=== PATIENT | male | born 1980 | race Caucasian/White ===

== ENCOUNTER 2018-10-06 07:17 | Inpatient (IN) | payer OTHER, MEDICAID ==
[~2018-10-06 07:17] MED LIST: DESFLURANE 15 MIN; GLYCOPYRROLATE 0.4 MG INJ; METOCLOPRAMIDE 10 MG INJ; NEOSTIGMINE 3 MG/3 ML SYRINGE; PROPOFOL 200 MG INJ
[2018-10-06] MEDS ORDERED: SOD CHLORIDE 0.9% 1,000 ML IV (09:00)
[2018-10-06] MEDS: CEFAZOLIN 2 GM/50 ML (PMX) 50 ML IVPB (09:00)
[2018-10-06] MEDS ORDERED: FENTAnyl 50 MCG/ML VIAL ×2 (09:09→10:50)
[2018-10-06] MEDS ORDERED: MIDAZOLAM 1 MG/ML 2 ML INJ ×2 (09:11→10:50)
[2018-10-06] MEDS ORDERED: ONDANSETRON 4 MG INJ (09:13)
[2018-10-06] MEDS ORDERED: ROCURONIUM 50 MG INJ (09:15)
[2018-10-06] MEDS ORDERED: PROPOFOL 20 ML (09:15)
[2018-10-06] MEDS ORDERED: LIDOCAINE 2% (SDV) 5 ML INJ (09:15)
[2018-10-06] MEDS ORDERED: SUCCINYLCHOLINE CHLORIDE 100 MG/5 ML SYG IV (09:15)
[2018-10-06] MEDS ORDERED: ROPIVACAINE 0.5 % 30 ML VIAL (09:16)
[2018-10-06] MEDS ORDERED: morphine SULFATE/PF (10 MG/10 ML) INJ (09:16)
[2018-10-06] MEDS ORDERED: POLYMYXIN/BACITRACIN 1L IRRIG (09:41)
[2018-10-06] MEDS ORDERED: ALBUMIN HUMAN 5% 250 ML IV (10:30)
[2018-10-06] MEDS ORDERED: LABETALOL HCL 20MG INJ IV (10:30)
[2018-10-06] MEDS ORDERED: FENTAnyl 50 MCG/ML VIAL IV ×2 (10:30)
[2018-10-06] MEDS ORDERED: HYDROmorphONE 1 MG/5 ML IV SYRINGE IV ×2 (10:30)
[2018-10-06] MEDS ORDERED: DIPHENHYDRAMINE 50 MG INJ IV ×2 (10:30→13:00)
[2018-10-06] MEDS ORDERED: ONDANSETRON 4 MG INJ IV ×3 (10:30→17:30)
[2018-10-06] MEDS ORDERED: MEPERIDINE 25 MG INJ IV (10:30)
[2018-10-06] MEDS ORDERED: LEVALBUTEROL (NEB) 1.25 MG/0.5 ML AMP HHN (10:30)
[2018-10-06] MEDS ORDERED: EPHEDrine SULFATE 50 MG/5 ML SYG IV (10:30)
[2018-10-06] MEDS ORDERED: hydrALAzine 20 MG INJ IV (10:30)
[2018-10-06] MEDS ORDERED: IPRATROPIUM (NEB) 0.5 MG/2.5 ML AMP HHN (10:30)
[2018-10-06] MEDS ORDERED: SUGAMMADEX SODIUM 200 MG/2 ML VIAL IV (12:16)
[2018-10-06] MEDS ORDERED: PROVENTIL HFA 6.7GM INHALER (12:21)
[2018-10-06 12:53] LABS: WHITE BLOOD COUNT 30.9 10^3/ul (4.8-10.8)
[2018-10-06 12:53] LABS: ABNORMAL IP MESSAGE 1; HEMATOCRIT 46.8 % (42.0-52.0); HEMOGLOBIN 15.5 g/dl (14.0-18.0); MEAN CORPUSCULAR HEMOGLOBIN 30.9 pg (29.0-33.0); MEAN CORPUSCULAR HGB CONC 33.1 g/dl (32.0-37.0); MEAN CORPUSCULAR VOLUME 93.4 fl (82.0-101.0); MEAN PLATELET VOLUME 10.3 fl (7.4-10.4); PLATELET COUNT 310 10^3/UL (140-415); POSITIVE DIFF @See below; RED BLOOD COUNT 5.01 10^6/ul (4.70-6.10); RED CELL DISTRIBUTION WIDTH 12.8 % (11.5-14.5)
[2018-10-06] MEDS: HYDROmorphONE 1 MG/5 ML IV SYRINGE IV (12:58)
[2018-10-06] MEDS ORDERED: ZOLPIDEM 5 MG TAB PO (13:00)
[2018-10-06] MEDS ORDERED: NALOXONE (0.4 MG/ML) INJ IV (13:00)
[2018-10-06] MEDS ORDERED: HYDROCODONE/APAP (5/325) TAB PO (13:00)
[2018-10-06] MEDS ORDERED: HYDROmorphONE 0.5 MG/0.5 ML SYG IV (13:00)
[2018-10-06 13:01] LABS: ADD MAN DIFF? YES; HOLD TRANSMISSIONS 1
[2018-10-06] MEDS: FENTAnyl 2MCG/ML-ROPIV 0.2% 100 ML BAG EPI (13:11)
[2018-10-06 13:13] LABS: ALANINE AMINOTRANSFERASE 54 IU/L (13-69); ALBUMIN 4.1 g/dl (3.3-4.9); ALBUMIN/GLOBULIN RATIO 1.36; ALKALINE PHOSPHATASE 76 IU/L (42-121); ANION GAP 10 (5-13); ASPARTATE AMINO TRANSFERASE 32 IU/L (15-46); BILIRUBIN,INDIRECT 0.3 mg/dl (0-1.1); BILIRUBIN,TOTAL 0.3 mg/dl (0.2-1.3); BLOOD UREA NITROGEN 12 mg/dl (7-20); CALCIUM 8.5 mg/dl (8.4-10.2); CARBON DIOXIDE 26 mmol/L (21-31); CHLORIDE 104 mmol/L (97-110); CREATININE 1.21 mg/dl (0.61-1.24); Estimated GFR > 60 mL/min (>60); GLUCOSE 165 mg/dl (70-220); SODIUM 140 mmol/L (135-144); TOTAL PROTEIN 7.1 g/dl (6.1-8.1)
[2018-10-06 13:23] LABS: ANISOCYTOSIS 1+ (0-0); BAND NEUTROPHILS #M 6.1 10^3/ul (0.0-0.6); BAND NEUTROPHILS % (M) 20 % (0-4); GIANT THROMBO% (M) 1 % (0-0); LYMPHOCYTES #M 1.5 10^3/ul (0.8-2.9); LYMPHOCYTES % (M) 5 % (15-51); MONOCYTE #M 1.8 10^3/ul (0.3-0.9); MONOCYTES % (M) 6 % (0-11); PLATELET ESTIMATE NORMAL; POIKILOCYTOSIS 1+ (0-0); REACTIVE LYMPHOCYTES #M 2.1 10^3/ul (0.0-0.0); REACTIVE LYMPHOCYTES% (M) 7 % (0-0); SEGMENTED NEUTROPHILS (M) % 62 % (39-77); SMUDGE%M 4 % (0-0)
[2018-10-06 13:24] LABS: PATH REVIEW Y
[2018-10-06] MEDS ORDERED: CEFAZOLIN 2 GM/50 ML (PMX) 50 ML IVPB (17:00)
[2018-10-06] MEDS: ACETAMINOPHEN 1000MG/100ML IV 100 ML IVPB (17:22)
[2018-10-06] MEDS ORDERED: VANCOMYCIN IV PER PHARMACY XX (17:30)
[2018-10-06] MEDS ORDERED: ALBUTEROL 0.083% (NEB) 2.5 MG/3 ML AMP NEB (17:30)
[2018-10-06] MEDS ORDERED: LORAZEPAM 2 MG INJ IV (17:30)
[2018-10-06] MEDS ORDERED: NACL 0.9% 3 ML SYG IV (17:30)
[2018-10-06] MEDS ORDERED: IPRATROPIUM (NEB) 0.5 MG/2.5 ML AMP NEB (17:30)
[2018-10-06 17:47] LABS: ADD MAN DIFF? NO
[2018-10-06 17:52] LABS: ABNORMAL IP MESSAGE 1; BASOPHIL # 0.1 10^3/ul (0.0-0.1); BASOPHILS % 0.3 % (0.0-2.0); HEMATOCRIT 42.3 % (42.0-52.0); HEMOGLOBIN 14.3 g/dl (14.0-18.0); LYMPHOCYTES # 1.4 10^3/ul (0.8-2.9); LYMPHOCYTES % 5.8 % (15.0-51.0); MEAN CORPUSCULAR HEMOGLOBIN 30.6 pg (29.0-33.0); MEAN CORPUSCULAR HGB CONC 33.8 g/dl (32.0-37.0); MEAN CORPUSCULAR VOLUME 90.6 fl (82.0-101.0); MEAN PLATELET VOLUME 10.4 fl (7.4-10.4); MONOCYTE # 1.7 10^3/ul (0.3-0.9); MONOCYTES % 6.9 % (0.0-11.0); NEUTROPHIL # 20.8 10^3/ul (1.6-7.5); NEUTROPHILS % 86.3 % (39.0-77.0); PLATELET COUNT 275 10^3/UL (140-415); POSITIVE DIFF @See below; RED BLOOD COUNT 4.67 10^6/ul (4.70-6.10)
[2018-10-06 17:56] LABS: HOLD TRANSMISSIONS 1
[2018-10-06 18:03] LABS: HEMOGLOBIN A1C 5.8 % (0-5.9)
[2018-10-06 18:07] LABS: WHITE BLOOD COUNT 24.1 10^3/ul (4.8-10.8)
[2018-10-06 18:18] LABS: ANION GAP 9 (5-13); BLOOD UREA NITROGEN 11 mg/dl (7-20); CALCIUM 8.4 mg/dl (8.4-10.2); CARBON DIOXIDE 26 mmol/L (21-31); CHLORIDE 101 mmol/L (97-110); CREATININE 0.96 mg/dl (0.61-1.24); Estimated GFR > 60 mL/min (>60); GLUCOSE 111 mg/dl (70-220); MAGNESIUM 1.7 mg/dl (1.7-2.5); PHOSPHORUS 3.6 mg/dl (2.5-4.9); POTASSIUM 4.2 mmol/L (3.5-5.1); SODIUM 136 mmol/L (135-144)
[2018-10-06] MEDS: HYDROCODONE/APAP (5/325) TAB PO (18:51)
[2018-10-06] MEDS: BARIUM SULF 2% 450 ML BTL (BERRY SMOOTHIE) PO (18:52)
[2018-10-06] MEDS: SOD CHLORIDE 0.9% 100 ML (18:52)
[2018-10-06] MEDS: IOHEXOL 300MG/ML 150 ML BTL (18:55)
[2018-10-06] MEDS: SOD CHLORIDE 0.9% 1,000 ML IV ×2 (19:23→22:09)
[2018-10-06] MEDS: HYDROmorphONE 0.5 MG/0.5 ML SYG IV (19:35)
[2018-10-06] MEDS: VANCOMYCIN HCL 1.5 GM in SOD CHLORIDE 0.9% 250 ML IVPB (20:05)
[2018-10-06] MEDS: MEROPENEM 500MG/50 ML (PMX) 50 ML IVPB (23:38)
[2018-10-06] MEDS: VANCOMYCIN HCL 2 GM in SOD CHLORIDE 0.9% 500 ML IVPB (23:43)
[2018-10-07 04:34] LABS: ADD MAN DIFF? NO
[2018-10-07 04:43] LABS: ABNORMAL IP MESSAGE 1; BASOPHIL # 0.1 10^3/ul (0.0-0.1); BASOPHILS % 0.4 % (0.0-2.0); HEMATOCRIT 45.7 % (42.0-52.0); HEMOGLOBIN 15.4 g/dl (14.0-18.0); LYMPHOCYTES % 8.4 % (15.0-51.0); MEAN CORPUSCULAR HEMOGLOBIN 30.8 pg (29.0-33.0); MEAN CORPUSCULAR HGB CONC 33.7 g/dl (32.0-37.0); MEAN CORPUSCULAR VOLUME 91.4 fl (82.0-101.0); MEAN PLATELET VOLUME 10.9 fl (7.4-10.4); MONOCYTE # 2.1 10^3/ul (0.3-0.9); MONOCYTES % 8.5 % (0.0-11.0); PLATELET COUNT 280 10^3/UL (140-415); POSITIVE DIFF @See below; RED CELL DISTRIBUTION WIDTH 12.9 % (11.5-14.5)
[2018-10-07 04:43] LABS: WHITE BLOOD COUNT 24.4 10^3/ul (4.8-10.8)
[2018-10-07 04:56] LABS: ALANINE AMINOTRANSFERASE 49 IU/L (13-69); ALBUMIN/GLOBULIN RATIO 1.21; ALKALINE PHOSPHATASE 72 IU/L (42-121); ANION GAP 7 (5-13); ASPARTATE AMINO TRANSFERASE 52 IU/L (15-46); BILIRUBIN,INDIRECT 1.2 mg/dl (0-1.1); BILIRUBIN,TOTAL 1.2 mg/dl (0.2-1.3); BLOOD UREA NITROGEN 9 mg/dl (7-20); CALCIUM 8.8 mg/dl (8.4-10.2); CARBON DIOXIDE 26 mmol/L (21-31); CHLORIDE 102 mmol/L (97-110); CREATININE 0.76 mg/dl (0.61-1.24); Estimated GFR > 60 mL/min (>60); GLUCOSE 139 mg/dl (70-220); SODIUM 135 mmol/L (135-144); TOTAL PROTEIN 7.3 g/dl (6.1-8.1)
[2018-10-07] MEDS: PANTOPRAZOLE 40 MG INJ IV (05:32)
[2018-10-07] MEDS: SOD CHLORIDE 0.9% 1,000 ML IV ×2 (06:14→15:33)
[2018-10-07] MEDS: MEROPENEM 500MG/50 ML (PMX) 50 ML IVPB ×2 (09:08→20:00)
[2018-10-07] MEDS: HYDROmorphONE 0.5 MG/0.5 ML SYG IV (09:08)
[2018-10-07] MEDS: VANCOMYCIN HCL 1.5 GM in SOD CHLORIDE 0.9% 250 ML IVPB ×2 (09:46→20:01)
[2018-10-07 13:23] LABS: LACTIC ACID 1.1 mmol/L (0.5-2.0)
[2018-10-07 15:15] LABS: HIV 1&2 ANTIBODY NEGATIVE (NEGATIVE)
[2018-10-07 15:21] LABS: ADD UMIC NO; UR ASCORBIC ACID NEGATIVE (NEGATIVE); UR BILIRUBIN (Dip) NEGATIVE (NEGATIVE); UR BLOOD (Dip) NEGATIVE (NEGATIVE); UR CLARITY CLEAR (CLEAR); UR COLOR YELLOW (YELLOW); UR GLUCOSE (Dip) NEGATIVE (NEGATIVE); UR KETONES (Dip) 2+ mg/dL (NEGATIVE); UR LEUKOCYTE ESTERASE (Dip) NEGATIVE Leu/ul (NEGATIVE); UR NITRITE (Dip) NEGATIVE (NEGATIVE); UR SPECIFIC GRAVITY (Dip) 1.019 (1.003-1.030); UR TOTAL PROTEIN (Dip) NEGATIVE (NEGATIVE); UR UROBILINOGEN (Dip) 1+ mg/dL (NEGATIVE)
[2018-10-07] MEDS: morphine 2 MG INJ IV (20:00)
[2018-10-08] MEDS: morphine 2 MG INJ IV ×3 (03:23→22:23)
[2018-10-08] MEDS: SOD CHLORIDE 0.9% 1,000 ML IV ×3 (05:09→23:26)
[2018-10-08] MEDS: PANTOPRAZOLE 40 MG INJ IV (05:16)
[2018-10-08 07:22] LABS: ADD MAN DIFF? NO
[2018-10-08 07:27] LABS: WHITE BLOOD COUNT 19.6 10^3/ul (4.8-10.8)
[2018-10-08 07:27] LABS: ABNORMAL IP MESSAGE 1; BASOPHIL # 0.1 10^3/ul (0.0-0.1); BASOPHILS % 0.4 % (0.0-2.0); EOSINOPHILS # 0.1 10^3/ul (0.0-0.5); EOSINOPHILS % 0.5 % (0.0-7.0); HEMATOCRIT 47.3 % (42.0-52.0); HEMOGLOBIN 15.7 g/dl (14.0-18.0); LYMPHOCYTES # 1.9 10^3/ul (0.8-2.9); LYMPHOCYTES % 9.6 % (15.0-51.0); MEAN CORPUSCULAR HEMOGLOBIN 30.5 pg (29.0-33.0); MEAN CORPUSCULAR HGB CONC 33.2 g/dl (32.0-37.0); MEAN CORPUSCULAR VOLUME 91.8 fl (82.0-101.0); MEAN PLATELET VOLUME 10.9 fl (7.4-10.4); MONOCYTES % 10.2 % (0.0-11.0); NEUTROPHIL # 15.4 10^3/ul (1.6-7.5); NEUTROPHILS % 78.4 % (39.0-77.0); PLATELET COUNT 247 10^3/UL (140-415); POSITIVE DIFF @See below; RED BLOOD COUNT 5.15 10^6/ul (4.70-6.10); RED CELL DISTRIBUTION WIDTH 12.1 % (11.5-14.5)
[2018-10-08 07:52] LABS: ANION GAP 11 (5-13); BLOOD UREA NITROGEN 14 mg/dl (7-20); CALCIUM 9.2 mg/dl (8.4-10.2); CARBON DIOXIDE 24 mmol/L (21-31); CHLORIDE 100 mmol/L (97-110); Estimated GFR > 60 mL/min (>60); GLUCOSE 149 mg/dl (70-220); POTASSIUM 4.3 mmol/L (3.5-5.1); SODIUM 135 mmol/L (135-144)
[2018-10-08 08:09] LABS: VANCOMYCIN,TROUGH < 5.0 ug/ml (10.0-20.0)
[2018-10-08] MEDS: VANCOMYCIN HCL 1.5 GM in SOD CHLORIDE 0.9% 250 ML IVPB ×2 (08:13→16:00)
[2018-10-08] MEDS: MEROPENEM 500MG/50 ML (PMX) 50 ML IVPB (08:25)
[2018-10-08] MEDS: ENOXAPARIN 40 MG/0.4 ML SYG SC (12:07)
[2018-10-08] MEDS: AMLODIPINE 5 MG TAB PO (12:07)
[2018-10-08] MEDS: MEROPENEM 1 GM/50ML(PMX) 50 ML IVPB ×2 (14:04→21:17)
[2018-10-08] MEDS: KETOROLAC 30 MG INJ IV (18:24)
[2018-10-09] MEDS: VANCOMYCIN HCL 1.5 GM in SOD CHLORIDE 0.9% 250 ML IVPB ×2 (00:49→09:36)
[2018-10-09] MEDS: MEROPENEM 1 GM/50ML(PMX) 50 ML IVPB ×2 (05:06→13:17)
[2018-10-09] MEDS: PANTOPRAZOLE 40 MG INJ IV (05:06)
[2018-10-09 05:21] LABS: ADD MAN DIFF? NO
[2018-10-09 05:23] LABS: ABNORMAL IP MESSAGE 1; BASOPHIL # 0.1 10^3/ul (0.0-0.1); BASOPHILS % 0.4 % (0.0-2.0); EOSINOPHILS # 0.4 10^3/ul (0.0-0.5); EOSINOPHILS % 2.4 % (0.0-7.0); HEMATOCRIT 41.8 % (42.0-52.0); HEMOGLOBIN 14.1 g/dl (14.0-18.0); LYMPHOCYTES # 2.3 10^3/ul (0.8-2.9); LYMPHOCYTES % 13.9 % (15.0-51.0); MEAN CORPUSCULAR HEMOGLOBIN 30.7 pg (29.0-33.0); MEAN CORPUSCULAR HGB CONC 33.7 g/dl (32.0-37.0); MEAN CORPUSCULAR VOLUME 91.1 fl (82.0-101.0); MEAN PLATELET VOLUME 10.7 fl (7.4-10.4); MONOCYTE # 1.6 10^3/ul (0.3-0.9); MONOCYTES % 9.4 % (0.0-11.0); NEUTROPHILS % 72.9 % (39.0-77.0); PLATELET COUNT 318 10^3/UL (140-415); POSITIVE DIFF @See below; RED BLOOD COUNT 4.59 10^6/ul (4.70-6.10)
[2018-10-09 05:23] LABS: WHITE BLOOD COUNT 16.5 10^3/ul (4.8-10.8)
[2018-10-09 06:05] LABS: ANION GAP 10 (5-13); BLOOD UREA NITROGEN 14 mg/dl (7-20); CALCIUM 8.7 mg/dl (8.4-10.2); CARBON DIOXIDE 23 mmol/L (21-31); CHLORIDE 103 mmol/L (97-110); CREATININE 0.62 mg/dl (0.61-1.24); Estimated GFR > 60 mL/min (>60); GLUCOSE 118 mg/dl (70-220); POTASSIUM 3.8 mmol/L (3.5-5.1); SODIUM 136 mmol/L (135-144)
[2018-10-09] MEDS: SOD CHLORIDE 0.9% 1,000 ML IV ×2 (09:36→20:09)
[2018-10-09] MEDS: AMLODIPINE 5 MG TAB PO (09:36)
[2018-10-09] MEDS: ENOXAPARIN 40 MG/0.4 ML SYG SC (09:54)
[2018-10-09] MEDS: PIPER-TAZO 3.375 GM IV (PMX) 100 ML IVPB (17:40)
[2018-10-10] MEDS: SOD CHLORIDE 0.9% 1,000 ML IV ×3 (01:39→13:10)
[2018-10-10] MEDS: PIPER-TAZO 3.375 GM IV (PMX) 100 ML IVPB ×3 (02:03→13:10)
[2018-10-10] MEDS: KETOROLAC 30 MG INJ IV (03:30)
[2018-10-10] MEDS: PANTOPRAZOLE 40 MG INJ IV (05:24)
[2018-10-10 05:26] LABS: ADD MAN DIFF? NO
[2018-10-10 05:36] LABS: WHITE BLOOD COUNT 12.7 10^3/ul (4.8-10.8)
[2018-10-10 05:36] LABS: BASOPHIL # 0.1 10^3/ul (0.0-0.1); BASOPHILS % 0.8 % (0.0-2.0); EOSINOPHILS # 0.4 10^3/ul (0.0-0.5); EOSINOPHILS % 3.4 % (0.0-7.0); HEMATOCRIT 41.8 % (42.0-52.0); HEMOGLOBIN 14.2 g/dl (14.0-18.0); LYMPHOCYTES # 2.6 10^3/ul (0.8-2.9); LYMPHOCYTES % 20.1 % (15.0-51.0); MEAN CORPUSCULAR HEMOGLOBIN 30.6 pg (29.0-33.0); MEAN CORPUSCULAR VOLUME 90.1 fl (82.0-101.0); MEAN PLATELET VOLUME 10.4 fl (7.4-10.4); MONOCYTE # 1.3 10^3/ul (0.3-0.9); MONOCYTES % 10.5 % (0.0-11.0); NEUTROPHILS % 63.5 % (39.0-77.0); PLATELET COUNT 345 10^3/UL (140-415); RED BLOOD COUNT 4.64 10^6/ul (4.70-6.10); RED CELL DISTRIBUTION WIDTH 11.9 % (11.5-14.5)
[2018-10-10 06:15] LABS: ANION GAP 11 (5-13); BLOOD UREA NITROGEN 12 mg/dl (7-20); CARBON DIOXIDE 20 mmol/L (21-31); CHLORIDE 105 mmol/L (97-110); CREATININE 0.67 mg/dl (0.61-1.24); Estimated GFR > 60 mL/min (>60); GLUCOSE 107 mg/dl (70-220); POTASSIUM 3.6 mmol/L (3.5-5.1); SODIUM 136 mmol/L (135-144)
[2018-10-10] MEDS: AMLODIPINE 5 MG TAB PO (08:33)
[2018-10-10] MEDS: ENOXAPARIN 40 MG/0.4 ML SYG SC (09:00)
[2018-10-10] MEDS ORDERED: morphine LIQ (10 MG/5 ML) CUP PO (23:00)
[2018-10-11] MEDS: SOD CHLORIDE 0.9% 1,000 ML IV ×2 (00:54→11:06)
[2018-10-11 05:29] LABS: ADD MAN DIFF? NO
[2018-10-11] MEDS: PANTOPRAZOLE (EC) 40 MG TAB PO (05:36)
[2018-10-11 05:43] LABS: WHITE BLOOD COUNT 14.1 10^3/ul (4.8-10.8)
[2018-10-11 05:43] LABS: BASOPHIL # 0.1 10^3/ul (0.0-0.1); BASOPHILS % 0.8 % (0.0-2.0); EOSINOPHILS # 0.6 10^3/ul (0.0-0.5); EOSINOPHILS % 4.2 % (0.0-7.0); HEMATOCRIT 42.5 % (42.0-52.0); HEMOGLOBIN 14.9 g/dl (14.0-18.0); LYMPHOCYTES # 2.9 10^3/ul (0.8-2.9); LYMPHOCYTES % 20.6 % (15.0-51.0); MEAN CORPUSCULAR HEMOGLOBIN 31.2 pg (29.0-33.0); MEAN CORPUSCULAR HGB CONC 35.1 g/dl (32.0-37.0); MEAN CORPUSCULAR VOLUME 89.1 fl (82.0-101.0); MEAN PLATELET VOLUME 10.2 fl (7.4-10.4); MONOCYTE # 1.3 10^3/ul (0.3-0.9); MONOCYTES % 9.3 % (0.0-11.0); NEUTROPHIL # 8.9 10^3/ul (1.6-7.5); NEUTROPHILS % 63.2 % (39.0-77.0); PLATELET COUNT 373 10^3/UL (140-415); RED BLOOD COUNT 4.77 10^6/ul (4.70-6.10); RED CELL DISTRIBUTION WIDTH 11.9 % (11.5-14.5)
[2018-10-11 06:14] LABS: ANION GAP 11 (5-13); BLOOD UREA NITROGEN 12 mg/dl (7-20); CALCIUM 9.1 mg/dl (8.4-10.2); CARBON DIOXIDE 22 mmol/L (21-31); CHLORIDE 106 mmol/L (97-110); CREATININE 0.66 mg/dl (0.61-1.24); Estimated GFR > 60 mL/min (>60); GLUCOSE 101 mg/dl (70-220); POTASSIUM 3.9 mmol/L (3.5-5.1); SODIUM 139 mmol/L (135-144)
[2018-10-11] MEDS: AMLODIPINE 5 MG TAB PO (08:31)
[2018-10-11] MEDS: ENOXAPARIN 40 MG/0.4 ML SYG SC (08:35)
[2018-10-12 13:16] LABS: PROCALCITONIN 0.19 ng/mL (<0.10)
[2018-10-12 14:52] LABS: NIL 0.08 IU/mL; QUANTIFERON(R)-TB GOLD NEGATIVE (NEGATIVE); TB-NIL <0.00 IU/mL; TB2-NIL <0.00 IU/mL
== END 2018-10-11 18:20 | disposition home or self-care (01) | DRG 853 ==
LOC: REC 07:17 → ICU 17:50 → 6WM 10-08 22:34
PROC: 0WUF0JZ Supplement Abdominal Wall with Synthetic Substitute, Open Approach (ICD-10-PCS; principal; 2018-10-06 10:16)
DX: A41.9 Sepsis, unspecified organism (principal); J18.9 Pneumonia, unspecified organism; J98.11 Atelectasis; K43.6 Other and unspecified ventral hernia with obstruction, without gangrene; K42.0 Umbilical hernia with obstruction, without gangrene; E66.9 Obesity, unspecified; Z68.37 Body mass index [BMI] 37.0-37.9, adult; R09.02 Hypoxemia; I10 Essential (primary) hypertension; Z90.49 Acquired absence of other specified parts of digestive tract
CPT/HCPCS: 71045; 71260; 74177; 80048; 80053; 80202; 81003; 83036; 83605; 83735; 84100; 84145; 85025; 86480; 86703; 87040; 87070; 87081; 87086; 87400; 93970; 97161

== ENCOUNTER 2018-10-15 16:37 | Emergency (ER) | payer OTHER | END 2018-10-15 20:03 | disposition home or self-care (01) | LOC: E/R 16:37 | DX: Z48.01 Encounter for change or removal of surgical wound dressing (principal); E66.9 Obesity, unspecified; Z68.33 Body mass index [BMI] 33.0-33.9, adult | CPT/HCPCS: 99281; Z7502 ==

== ENCOUNTER 2018-11-02 21:03 | Inpatient (IN) | payer OTHER ==
[2018-11-02] MEDS: SODIUM CHLORIDE 0.9% 1L BAG IV* (21:18)
[2018-11-02 21:37] LABS: ADD MAN DIFF? NO
[2018-11-02 21:40] LABS: ABNORMAL IP MESSAGE 1; BASOPHIL # 0.1 10^3/ul (0.0-0.1); BASOPHILS % 0.5 % (0.0-2.0); EOSINOPHILS # 0.6 10^3/ul (0.0-0.5); EOSINOPHILS % 3.2 % (0.0-7.0); HEMATOCRIT 47.2 % (42.0-52.0); HEMOGLOBIN 15.8 g/dl (14.0-18.0); LYMPHOCYTES # 2.2 10^3/ul (0.8-2.9); LYMPHOCYTES % 12.1 % (15.0-51.0); MEAN CORPUSCULAR HEMOGLOBIN 30.3 pg (29.0-33.0); MEAN CORPUSCULAR HGB CONC 33.5 g/dl (32.0-37.0); MEAN CORPUSCULAR VOLUME 90.6 fl (82.0-101.0); MEAN PLATELET VOLUME 10.3 fl (7.4-10.4); MONOCYTE # 1.8 10^3/ul (0.3-0.9); NEUTROPHIL # 13.4 10^3/ul (1.6-7.5); NEUTROPHILS % 73.4 % (39.0-77.0); PLATELET COUNT 321 10^3/UL (140-415); POSITIVE DIFF @See below; RED BLOOD COUNT 5.21 10^6/ul (4.70-6.10); RED CELL DISTRIBUTION WIDTH 12.7 % (11.5-14.5)
[2018-11-02 21:40] LABS: WHITE BLOOD COUNT 18.3 10^3/ul (4.8-10.8)
[2018-11-02 21:44] LABS: ADD UMIC NO; UR ASCORBIC ACID NEGATIVE (NEGATIVE); UR BILIRUBIN (Dip) NEGATIVE (NEGATIVE); UR BLOOD (Dip) NEGATIVE (NEGATIVE); UR CLARITY CLEAR (CLEAR); UR COLOR STRAW (YELLOW); UR GLUCOSE (Dip) NEGATIVE (NEGATIVE); UR KETONES (Dip) NEGATIVE (NEGATIVE); UR LEUKOCYTE ESTERASE (Dip) NEGATIVE Leu/ul (NEGATIVE); UR NITRITE (Dip) NEGATIVE (NEGATIVE); UR SPECIFIC GRAVITY (Dip) 1.008 (1.003-1.030); UR TOTAL PROTEIN (Dip) NEGATIVE (NEGATIVE); UR UROBILINOGEN (Dip) NEGATIVE (NEGATIVE)
[2018-11-02] MEDS: CEFEPIME 2GM/50 ML (PMX) 50 ML IVPB (21:54)
[2018-11-02] MEDS: ACETAMINOPHEN 500 MG TAB PO (21:54)
[2018-11-02 21:56] LABS: INR 0.88; PT RATIO 0.9
[2018-11-02 21:57] LABS: PARTIAL THROMBOPLASTIN TIME 31.3 Sec (23.0-35.0)
[2018-11-02 21:58] LABS: ALANINE AMINOTRANSFERASE 43 IU/L (13-69); ALBUMIN 4.8 g/dl (3.3-4.9); ALBUMIN/GLOBULIN RATIO 1.33; ALKALINE PHOSPHATASE 86 IU/L (42-121); ANION GAP 14 (5-13); ASPARTATE AMINO TRANSFERASE 30 IU/L (15-46); BILIRUBIN,INDIRECT 0.4 mg/dl (0-1.1); BILIRUBIN,TOTAL 0.4 mg/dl (0.2-1.3); BLOOD UREA NITROGEN 10 mg/dl (7-20); CALCIUM 9.2 mg/dl (8.4-10.2); CARBON DIOXIDE 28 mmol/L (21-31); CHLORIDE 98 mmol/L (97-110); CREATININE 0.93 mg/dl (0.61-1.24); Estimated GFR > 60 mL/min (>60); GLUCOSE 114 mg/dl (70-220); POTASSIUM 3.8 mmol/L (3.5-5.1); SODIUM 140 mmol/L (135-144); TOTAL PROTEIN 8.4 g/dl (6.1-8.1)
[2018-11-02 22:09] LABS: TROPONIN-I < 0.012 ng/ml (0.000-0.120)
[2018-11-02] MEDS: VANCOMYCIN 1 GM (PMX) 250 ML IVPB (22:26)
[2018-11-03] MEDS ORDERED: ACETAMINOPHEN 325 MG TAB PO ×2 (00:30→02:30)
[2018-11-03] MEDS ORDERED: ONDANSETRON 4 MG INJ IV ×2 (00:30→02:30)
[2018-11-03] MEDS ORDERED: ALBUTEROL/IPRATROPIUM (NEB) 3 ML AMP HHN (02:30)
[2018-11-03] MEDS: GUAIFENESIN/CODEINE 5ML CUP PO (03:02)
[2018-11-03] MEDS: CEFTRIAXONE 1 GM/50 ML (PMX) 50 ML IVPB (03:03)
[2018-11-03] MEDS: KETOROLAC 30 MG INJ IV (03:03)
[2018-11-03] MEDS: SOD CHLORIDE 0.9% 1,000 ML IV ×3 (03:16→17:22)
[2018-11-03 03:49] LABS: ADD MAN DIFF? NO
[2018-11-03 03:56] LABS: WHITE BLOOD COUNT 16.8 10^3/ul (4.8-10.8)
[2018-11-03 03:56] LABS: ABNORMAL IP MESSAGE 1; BASOPHIL # 0.1 10^3/ul (0.0-0.1); BASOPHILS % 0.5 % (0.0-2.0); EOSINOPHILS # 0.5 10^3/ul (0.0-0.5); HEMATOCRIT 44.1 % (42.0-52.0); HEMOGLOBIN 15.1 g/dl (14.0-18.0); LYMPHOCYTES # 2.2 10^3/ul (0.8-2.9); LYMPHOCYTES % 12.8 % (15.0-51.0); MEAN CORPUSCULAR HEMOGLOBIN 30.5 pg (29.0-33.0); MEAN CORPUSCULAR HGB CONC 34.2 g/dl (32.0-37.0); MEAN CORPUSCULAR VOLUME 89.1 fl (82.0-101.0); MEAN PLATELET VOLUME 10.3 fl (7.4-10.4); MONOCYTE # 1.6 10^3/ul (0.3-0.9); MONOCYTES % 9.7 % (0.0-11.0); NEUTROPHIL # 12.3 10^3/ul (1.6-7.5); NEUTROPHILS % 73.4 % (39.0-77.0); PLATELET COUNT 291 10^3/UL (140-415); POSITIVE DIFF @See below; RED BLOOD COUNT 4.95 10^6/ul (4.70-6.10); RED CELL DISTRIBUTION WIDTH 12.8 % (11.5-14.5)
[2018-11-03 04:14] LABS: ANION GAP 11 (5-13); BLOOD UREA NITROGEN 8 mg/dl (7-20); CALCIUM 8.9 mg/dl (8.4-10.2); CARBON DIOXIDE 23 mmol/L (21-31); CHLORIDE 105 mmol/L (97-110); CREATININE 0.69 mg/dl (0.61-1.24); Estimated GFR > 60 mL/min (>60); GLUCOSE 127 mg/dl (70-220); POTASSIUM 3.9 mmol/L (3.5-5.1); SODIUM 139 mmol/L (135-144)
[2018-11-03 04:18] LABS: LACTIC ACID 1.9 mmol/L (0.5-2.0)
[2018-11-03] MEDS: AZITHROMYCIN 500MG/NS (PMX) 250 ML IVPB (06:46)
[2018-11-03 07:06] LABS: LACTIC ACID 1.7 mmol/L (0.5-2.0)
[2018-11-03] MEDS: ENOXAPARIN 40 MG/0.4 ML SYG SC (09:18)
[2018-11-03] MEDS: CEPASTAT LOZENGE MT (12:30)
[2018-11-03] MEDS ORDERED: LEVALBUTEROL (HFA) 15 GM INHALER INH (13:00)
[2018-11-03] MEDS ORDERED: NITROGLYCERIN (SL) 0.4 MG TAB SL (14:00)
[2018-11-03] MEDS: DILTIAZEM 30 MG TAB PO ×2 (14:36→22:50)
[2018-11-03 19:17] LABS: CREATINE KINASE 73 IU/L (23-200)
[2018-11-03 19:30] LABS: CK INDEX 0.9; CK-MB 0.69 ng/ml (0.0-2.4); TROPONIN-I < 0.012 ng/ml (0.000-0.120)
[2018-11-04 01:04] LABS: CREATINE KINASE 71 IU/L (23-200)
[2018-11-04 01:14] LABS: TROPONIN-I < 0.012 ng/ml (0.000-0.120)
[2018-11-04] MEDS: CEFTRIAXONE 1 GM/50 ML (PMX) 50 ML IVPB (03:00)
[2018-11-04] MEDS: SOD CHLORIDE 0.9% 1,000 ML IV ×3 (05:44→18:58)
[2018-11-04] MEDS: DILTIAZEM 30 MG TAB PO ×3 (05:46→21:13)
[2018-11-04 08:36] LABS: ADD MAN DIFF? NO
[2018-11-04 08:46] LABS: WHITE BLOOD COUNT 5.9 10^3/ul (4.8-10.8)
[2018-11-04 08:46] LABS: BASOPHIL # 0.1 10^3/ul (0.0-0.1); BASOPHILS % 0.9 % (0.0-2.0); EOSINOPHILS # 0.7 10^3/ul (0.0-0.5); EOSINOPHILS % 11.9 % (0.0-7.0); HEMATOCRIT 46.6 % (42.0-52.0); HEMOGLOBIN 15.8 g/dl (14.0-18.0); LYMPHOCYTES # 1.7 10^3/ul (0.8-2.9); MEAN CORPUSCULAR HEMOGLOBIN 30.2 pg (29.0-33.0); MEAN CORPUSCULAR HGB CONC 33.9 g/dl (32.0-37.0); MEAN CORPUSCULAR VOLUME 89.1 fl (82.0-101.0); MEAN PLATELET VOLUME 10.6 fl (7.4-10.4); MONOCYTE # 1.1 10^3/ul (0.3-0.9); MONOCYTES % 18.3 % (0.0-11.0); NEUTROPHIL # 2.3 10^3/ul (1.6-7.5); PLATELET COUNT 278 10^3/UL (140-415); RED BLOOD COUNT 5.23 10^6/ul (4.70-6.10); RED CELL DISTRIBUTION WIDTH 12.7 % (11.5-14.5)
[2018-11-04 09:06] LABS: ANION GAP 13 (5-13); BLOOD UREA NITROGEN 8 mg/dl (7-20); CALCIUM 9.8 mg/dl (8.4-10.2); CARBON DIOXIDE 24 mmol/L (21-31); CHLORIDE 105 mmol/L (97-110); CREATININE 0.64 mg/dl (0.61-1.24); Estimated GFR > 60 mL/min (>60); GLUCOSE 116 mg/dl (70-220); POTASSIUM 4.2 mmol/L (3.5-5.1); SODIUM 142 mmol/L (135-144)
[2018-11-04 09:08] LABS: CREATINE KINASE 73 IU/L (23-200)
[2018-11-04 09:09] LABS: CHOL/HDL RATIO 6.3 RATIO; HDL CHOLESTEROL 31 mg/dl (28-63); LDL CHOLESTEROL,CALCULATED 131 mg/dl; TRIGLYCERIDES 182 mg/dl (0-149)
[2018-11-04 09:09] LABS: CHOLESTEROL 198 mg/dl (100-200)
[2018-11-04 09:14] LABS: CK-MB 0.71 ng/ml (0.0-2.4); TROPONIN-I < 0.012 ng/ml (0.000-0.120)
[2018-11-04] MEDS: FAMOTIDINE 20 MG TAB PO (10:09)
[2018-11-04] MEDS: AZITHROMYCIN 500MG/NS (PMX) 250 ML IVPB (10:09)
[2018-11-04] MEDS: ENOXAPARIN 40 MG/0.4 ML SYG SC (10:17)
[2018-11-05] MEDS: CEFTRIAXONE 1 GM/50 ML (PMX) 50 ML IVPB (02:24)
[2018-11-05] MEDS: DILTIAZEM 30 MG TAB PO ×3 (06:24→20:35)
[2018-11-05] MEDS: AZITHROMYCIN 500MG/NS (PMX) 250 ML IVPB (07:45)
[2018-11-05] MEDS: SOD CHLORIDE 0.9% 1,000 ML IV ×2 (07:57→20:36)
[2018-11-05] MEDS: FAMOTIDINE 20 MG TAB PO (07:57)
[2018-11-05] MEDS: ENOXAPARIN 40 MG/0.4 ML SYG SC (08:01)
[2018-11-05 08:27] LABS: ADD MAN DIFF? NO
[2018-11-05 08:34] LABS: WHITE BLOOD COUNT 6.6 10^3/ul (4.8-10.8)
[2018-11-05 08:34] LABS: BASOPHIL # 0.1 10^3/ul (0.0-0.1); BASOPHILS % 0.9 % (0.0-2.0); EOSINOPHILS # 0.6 10^3/ul (0.0-0.5); HEMATOCRIT 46.3 % (42.0-52.0); HEMOGLOBIN 15.7 g/dl (14.0-18.0); LYMPHOCYTES # 2.1 10^3/ul (0.8-2.9); LYMPHOCYTES % 32.7 % (15.0-51.0); MEAN CORPUSCULAR HEMOGLOBIN 30.6 pg (29.0-33.0); MEAN CORPUSCULAR HGB CONC 33.9 g/dl (32.0-37.0); MEAN CORPUSCULAR VOLUME 90.3 fl (82.0-101.0); MEAN PLATELET VOLUME 10.6 fl (7.4-10.4); MONOCYTE # 0.8 10^3/ul (0.3-0.9); MONOCYTES % 12.2 % (0.0-11.0); NEUTROPHIL # 2.9 10^3/ul (1.6-7.5); NEUTROPHILS % 44.3 % (39.0-77.0); PLATELET COUNT 287 10^3/UL (140-415); RED BLOOD COUNT 5.13 10^6/ul (4.70-6.10); RED CELL DISTRIBUTION WIDTH 12.2 % (11.5-14.5)
[2018-11-05 08:54] LABS: ANION GAP 13 (5-13); BLOOD UREA NITROGEN 9 mg/dl (7-20); CALCIUM 9.5 mg/dl (8.4-10.2); CARBON DIOXIDE 23 mmol/L (21-31); CHLORIDE 104 mmol/L (97-110); CREATININE 0.78 mg/dl (0.61-1.24); Estimated GFR > 60 mL/min (>60); GLUCOSE 107 mg/dl (70-220); POTASSIUM 3.8 mmol/L (3.5-5.1); SODIUM 140 mmol/L (135-144)
[2018-11-06] MEDS: CEFTRIAXONE 1 GM/50 ML (PMX) 50 ML IVPB (03:40)
[2018-11-06] MEDS: DILTIAZEM 30 MG TAB PO ×3 (06:15→22:50)
[2018-11-06] MEDS: AZITHROMYCIN 500MG/NS (PMX) 250 ML IVPB (08:04)
[2018-11-06] MEDS: FAMOTIDINE 20 MG TAB PO (08:04)
[2018-11-06] MEDS: ENOXAPARIN 40 MG/0.4 ML SYG SC (08:16)
[2018-11-06] MEDS: SOD CHLORIDE 0.9% 1,000 ML IV ×2 (10:30→22:52)
[2018-11-07] MEDS: CEFTRIAXONE 1 GM/50 ML (PMX) 50 ML IVPB (02:02)
[2018-11-07] MEDS: DILTIAZEM 30 MG TAB PO ×3 (06:18→22:00)
[2018-11-07] MEDS: AZITHROMYCIN 500MG/NS (PMX) 250 ML IVPB (08:20)
[2018-11-07] MEDS: FAMOTIDINE 20 MG TAB PO (08:20)
[2018-11-07] MEDS: ENOXAPARIN 40 MG/0.4 ML SYG SC (08:57)
[2018-11-07] MEDS: SOD CHLORIDE 0.9% 1,000 ML IV (13:10)
[2018-11-08] MEDS: CEFTRIAXONE 1 GM/50 ML (PMX) 50 ML IVPB (01:24)
[2018-11-08] MEDS: SOD CHLORIDE 0.9% 1,000 ML IV ×3 (01:26→21:08)
[2018-11-08] MEDS: DILTIAZEM 30 MG TAB PO ×3 (06:21→21:08)
[2018-11-08] MEDS: AZITHROMYCIN 500MG/NS (PMX) 250 ML IVPB (09:45)
[2018-11-08] MEDS: FAMOTIDINE 20 MG TAB PO (09:46)
[2018-11-08] MEDS: ENOXAPARIN 40 MG/0.4 ML SYG SC (09:47)
[2018-11-09] MEDS: CEFTRIAXONE 1 GM/50 ML (PMX) 50 ML IVPB (03:36)
[2018-11-09] MEDS: SOD CHLORIDE 0.9% 1,000 ML IV (05:10)
[2018-11-09] MEDS: DILTIAZEM 30 MG TAB PO (06:10)
[2018-11-09] MEDS: AZITHROMYCIN 500MG/NS (PMX) 250 ML IVPB (06:10)
[2018-11-09] MEDS: FAMOTIDINE 20 MG TAB PO (09:00)
[2018-11-09] MEDS: ENOXAPARIN 40 MG/0.4 ML SYG SC (09:03)
[2018-11-10] MEDS: FAMOTIDINE 20 MG TAB PO (09:19)
[2018-11-10] MEDS: ENOXAPARIN 40 MG/0.4 ML SYG SC (09:22)
== END 2018-11-10 15:20 | disposition home or self-care (01) | DRG 871 ==
LOC: E/R 21:03 → MS1 11-07 20:52 → TEL 11-03 00:25
DX: A41.9 Sepsis, unspecified organism (principal); J18.9 Pneumonia, unspecified organism; I10 Essential (primary) hypertension; E66.9 Obesity, unspecified; R91.1 Solitary pulmonary nodule; Z68.36 Body mass index [BMI] 36.0-36.9, adult
CPT/HCPCS: 36415; 71045; 80048; 80053; 80061; 81003; 82550; 82553; 83605; 84484; 85025; 85610; 85730; 86635; 87040; 87070; 87086; 87116; 87275; 87276; 87279; 87280; 87400; 87449; 93005; 93306; 96374; 96375; 99291-25; G0378

== ENCOUNTER 2018-12-10 12:17 | Emergency (ER) | payer OTHER ==
[2018-12-10 12:55] LABS: ADD MAN DIFF? NO
[2018-12-10 13:05] LABS: BASOPHIL # 0.1 10^3/ul (0.0-0.1); BASOPHILS % 0.4 % (0.0-2.0); EOSINOPHILS # 0.6 10^3/ul (0.0-0.5); EOSINOPHILS % 2.5 % (0.0-7.0); HEMOGLOBIN 16.1 g/dl (14.0-18.0); LYMPHOCYTES % 8.9 % (15.0-51.0); MEAN CORPUSCULAR HEMOGLOBIN 30.6 pg (29.0-33.0); MEAN CORPUSCULAR HGB CONC 34.3 g/dl (32.0-37.0); MEAN CORPUSCULAR VOLUME 89.4 fl (82.0-101.0); MEAN PLATELET VOLUME 10.4 fl (7.4-10.4); MONOCYTE # 1.4 10^3/ul (0.3-0.9); MONOCYTES % 6.4 % (0.0-11.0); NEUTROPHIL # 18.1 10^3/ul (1.6-7.5); NEUTROPHILS % 80.8 % (39.0-77.0); PLATELET COUNT 310 10^3/UL (140-415); RED BLOOD COUNT 5.26 10^6/ul (4.70-6.10); RED CELL DISTRIBUTION WIDTH 12.5 % (11.5-14.5)
[2018-12-10 13:05] LABS: WHITE BLOOD COUNT 22.4 10^3/ul (4.8-10.8)
[2018-12-10 13:19] LABS: ANION GAP 12 (5-13); BLOOD UREA NITROGEN 11 mg/dl (7-20); CALCIUM 9.4 mg/dl (8.4-10.2); CARBON DIOXIDE 26 mmol/L (21-31); CHLORIDE 101 mmol/L (97-110); CREATININE 0.77 mg/dl (0.61-1.24); Estimated GFR > 60 mL/min (>60); GLUCOSE 106 mg/dl (70-220); SODIUM 139 mmol/L (135-144)
[2018-12-10] MEDS: SOD CHLORIDE 0.9% 1,000 ML IV (13:29)
[2018-12-10] MEDS: KETOROLAC 30 MG INJ IV (13:30)
[2018-12-10] MEDS: CEFTRIAXONE 1 GM/50 ML (PMX) 50 ML IVPB (13:49)
[2018-12-10] MEDS: AZITHROMYCIN 500MG/NS (PMX) 250 ML IV (14:35)
== END 2018-12-10 15:52 | disposition home or self-care (01) ==
LOC: E/R 12:17
DX: J18.1 Lobar pneumonia, unspecified organism (principal)
CPT/HCPCS: 36415; 71045; 80048; 85025; 87040-91; 96374; 96375; 99284-25